=== PATIENT | male | born 1940 | race Caucasian/White ===

== ENCOUNTER 2019-01-24 13:02 | Inpatient (IN) | payer MEDICARE, OTHER ==
[2019-01-24] VITALS (37 sets, daily range): BP systolic 117–165; BP diastolic 41–110
[~2019-01-24] VITALS: Ht 152.4 cm; Wt 76.3 kg
[2019-01-24 13:56] LABS: BASOPHILS % 1.5 % (0.0-2.0); EOSINOPHILS % 1.5 % (0.0-5.0); HEMATOCRIT. 29.2 % (42.0-52.0); HEMOGLOBIN. 9.9 g/dL (14.0-18.0); LYMPHOCYTES % 19.1 % (20.0-50.0); MEAN CORPUSCULAR HEMOGLOBIN 32.4 pg (28.0-32.0); MEAN CORPUSCULAR VOLUME 95.3 fL (80.0-94.0); MEAN PLATELET VOLUME 8.4 fl (7.4-10.4); NEUTROPHILS % 70.9 % (40.0-76.0); PLATELET 198 x1000/uL (130-400); RED BLOOD CELL COUNT 3.06 mill/uL (4.7-6.1)
[2019-01-24] MEDS ORDERED: LEVETIRACETAM 1,000 MG in SODIUM CHLORIDE 0.9% 100 ML IV STA (13:57)
[2019-01-24] MEDS ORDERED: NICARDIPINE 40MG/200ML PREMIX 200 ML IV STA (13:57)
[2019-01-24 14:03] LABS: CHLORIDE 112 mEq/L (98-107)
[2019-01-24 14:04] LABS: INR 1.1; PROTHROMBIN TIME 11.4 sec (9.6-11.0)
[2019-01-24 14:07] LABS: ETHANOL BLOOD < 10 mg/dL
[2019-01-24 14:10] LABS: LDL CHOLESTEROL 104 mg/dL (5-100)
[2019-01-24] MEDS ORDERED: MORPHINE SULFATE 2 MG/ML CPJ (NOT FOR IM USE) IV PRN (14:45)
[2019-01-24] MEDS ORDERED: DEXT 5%/LACTATED RINGERS 1,000 ML IV SCH (16:00)
[2019-01-24] MEDS ORDERED: NICARDIPINE 100 MG in SODIUM CHLORIDE 0.9% 60 ML IV PRN (16:30)
[2019-01-24] MEDS ORDERED: ACETAMINOPHEN 650MG SUPP PR PRN (18:15)
[2019-01-24] MEDS ORDERED: DOCUSATE SODIUM 100MG CAPSULE PO PRN (18:15)
[2019-01-24] MEDS ORDERED: GUAIFENESIN 200MG/10ML SUGAR FREE UDC PO PRN (18:15)
[2019-01-24] MEDS ORDERED: MAGNESIUM/ALUMINUM HYDROXIDE/SIMETHICONE 30ML UDC PO PRN (18:15)
[2019-01-24] MEDS ORDERED: ONDANSETRON HCL 4MG/2ML INJ IV PRN (18:15)
[2019-01-24] MEDS ORDERED: IPRATROPIUM/ALBUTEROL 0.5-3(2.5)MG/3ML NEB HHN PRN (18:15)
[2019-01-24] MEDS ORDERED: DIPHENHYDRAMINE 50MG/ML VIAL IV PRN (18:15)
[2019-01-24] MEDS: DEXAMETHASONE 4MG/ML 1ML VIAL IV SCH ×2 (18:33→23:51)
[2019-01-24] MEDS: NICARDIPINE 100 MG in SODIUM CHLORIDE 0.9% 60 ML IV PRN (18:35)
[2019-01-24 19:17] LABS: PHOSPHORUS 3.3 mg/dL (2.5-4.9)
[2019-01-24 19:49] LABS: CLARITY URINE TURBID (CLEAR); COLOR URINE YELLOW (YELLOW); KETONES URINE NEGATIVE (NEGATIVE); LEUKOCYTE ESTERASE URINE 3+ (NEGATIVE); NITRITE URINE NEGATIVE (NEGATIVE); OCCULT BLOOD URINE 2+ (NEGATIVE); PROTEIN URINE 3+ (NEGATIVE); UROBILINOGEN URINE 0.2 E.U./dL (0.2-1.0)
[2019-01-24 20:00] LABS: *AMPHETAMINES SCREEN URINE NEGATIVE (NEGATIVE); *BARBITURATES SCREEN URINE NEGATIVE (NEGATIVE); *BENZODIAZEPINES SCREEN URINE NEGATIVE (NEGATIVE); *COCAINE SCREEN URINE NEGATIVE (NEGATIVE); METHADONE URINE SCREEN NEGATIVE (NEGATIVE)
[2019-01-24 20:01] LABS: CANNABINOID URINE SCREEN NEGATIVE (NEGATIVE); OPIATES URINE SCREEN NEGATIVE (NEGATIVE); PHENCYCLIDINE URINE SCREEN NEGATIVE (NEGATIVE)
[2019-01-24 23:57] LABS: CREATINE KINASE MB FRACTION 5.6 ng/mL (0.5-3.6)
[2019-01-25] VITALS (97 sets, daily range): BP systolic 109–148; BP diastolic 29–110
[2019-01-25 05:23] LABS: EOSINOPHILS % 0.1 % (0.0-5.0); HEMATOCRIT. 31.8 % (42.0-52.0); HEMOGLOBIN. 10.8 g/dL (14.0-18.0); LYMPHOCYTES % 15.3 % (20.0-50.0); MEAN CORPUSCULAR HEMOGLOBIN 32.4 pg (28.0-32.0); MEAN CORPUSCULAR VOLUME 95.5 fL (80.0-94.0); MEAN PLATELET VOLUME 8.5 fl (7.4-10.4); MONOCYTES % 1.4 % (2.0-8.0); NEUTROPHILS % 82.2 % (40.0-76.0); PLATELET 215 x1000/uL (130-400); RED BLOOD CELL COUNT 3.34 mill/uL (4.7-6.1)
[2019-01-25 05:27] LABS: CHLORIDE 114 mEq/L (98-107)
[2019-01-25 05:35] LABS: LDL CHOLESTEROL 117 mg/dL (5-100)
[2019-01-25 05:36] LABS: CREATINE KINASE 160 IU/L (39-308)
[2019-01-25 05:37] LABS: HDL CHOLESTEROL 44 mg/dL (40-59)
[2019-01-25 05:39] LABS: CREATINE KINASE MB FRACTION 5.1 ng/mL (0.5-3.6)
[2019-01-25] MEDS: DEXAMETHASONE 4MG/ML 1ML VIAL IV SCH ×3 (07:08→17:56)
[2019-01-25] MEDS: NIFEDIPINE XL 60MG TAB PO SCH (12:06)
[2019-01-25] MEDS: NICARDIPINE 100 MG in SODIUM CHLORIDE 0.9% 60 ML IV PRN (12:31)
[2019-01-25] MEDS ORDERED: LEVOFLOXACIN 750MG PREMIX 150 ML IV NR (18:00)
[2019-01-25] MEDS: METOPROLOL TARTRATE 25MG TABLET PO SCH (20:58)
[2019-01-26] VITALS (66 sets, daily range): BP systolic 88–142; BP diastolic 28–77
[2019-01-26 04:51] LABS: BASOPHILS % 0.3 % (0.0-2.0); HEMATOCRIT. 33.3 % (42.0-52.0); HEMOGLOBIN. 11.1 g/dL (14.0-18.0); LYMPHOCYTES % 8.7 % (20.0-50.0); MEAN CORPUSCULAR HEMOGLOBIN 32.2 pg (28.0-32.0); MEAN PLATELET VOLUME 8.9 fl (7.4-10.4); MONOCYTES % 2.3 % (2.0-8.0); NEUTROPHILS % 88.7 % (40.0-76.0); PLATELET 217 x1000/uL (130-400); RED BLOOD CELL COUNT 3.43 mill/uL (4.7-6.1); RED CELL DISTRIBUTION WIDTH 14.1 % (11.6-14.6)
[2019-01-26 05:14] LABS: PHOSPHORUS 3.7 mg/dL (2.5-4.9)
[2019-01-26] MEDS ORDERED: SODIUM POLYSTYRENE SULFONATE 15 G/60 ML BOT PO ONE (08:00)
[2019-01-26] MEDS: NIFEDIPINE XL 60MG TAB PO SCH (08:59)
[2019-01-26] MEDS: METOPROLOL TARTRATE 25MG TABLET PO SCH (09:01)
[2019-01-26] MEDS ORDERED: SODIUM POLYSTYRENE SULFONATE 15 G/60 ML BOT PO NR (10:00)
[2019-01-26] MEDS: TAMSULOSIN HCL 0.4MG SR CAPSULE PO SCH (11:03)
[2019-01-27] VITALS (15 sets, daily range): BP systolic 122–149; BP diastolic 55–77
[2019-01-27 08:33] LABS: BASOPHILS % 0.3 % (0.0-2.0); EOSINOPHILS % 0.2 % (0.0-5.0); HEMATOCRIT. 28.5 % (42.0-52.0); HEMOGLOBIN. 9.7 g/dL (14.0-18.0); LYMPHOCYTES % 15.3 % (20.0-50.0); MEAN CORPUSCULAR HEMOGLOBIN 32.2 pg (28.0-32.0); MEAN CORPUSCULAR VOLUME 94.6 fL (80.0-94.0); MONOCYTES % 8.3 % (2.0-8.0); NEUTROPHILS % 75.9 % (40.0-76.0); PLATELET 205 x1000/uL (130-400); RED BLOOD CELL COUNT 3.01 mill/uL (4.7-6.1)
[2019-01-27 08:53] LABS: PHOSPHORUS 4.2 mg/dL (2.5-4.9)
[2019-01-27] MEDS: NIFEDIPINE XL 60MG TAB PO SCH (09:18)
[2019-01-27] MEDS: TAMSULOSIN HCL 0.4MG SR CAPSULE PO SCH (09:18)
[2019-01-27] MEDS ORDERED: LEVOFLOXACIN 500MG PREMIX 100 ML IV SCH (14:00)
[2019-01-28] VITALS (12 sets, daily range): BP systolic 134–170; BP diastolic 57–92
[2019-01-28 07:31] LABS: BASOPHILS % 0.7 % (0.0-2.0); EOSINOPHILS % 0.5 % (0.0-5.0); HEMATOCRIT. 31.6 % (42.0-52.0); HEMOGLOBIN. 10.7 g/dL (14.0-18.0); LYMPHOCYTES % 15.8 % (20.0-50.0); MEAN CORPUSCULAR HEMOGLOBIN 32.3 pg (28.0-32.0); MEAN CORPUSCULAR VOLUME 95.2 fL (80.0-94.0); MEAN PLATELET VOLUME 8.7 fl (7.4-10.4); MONOCYTES % 10.7 % (2.0-8.0); NEUTROPHILS % 72.3 % (40.0-76.0); PLATELET 190 x1000/uL (130-400); RED BLOOD CELL COUNT 3.32 mill/uL (4.7-6.1); RED CELL DISTRIBUTION WIDTH 14.1 % (11.6-14.6)
[2019-01-28] MEDS: NIFEDIPINE XL 60MG TAB PO SCH (08:26)
[2019-01-28] MEDS: TAMSULOSIN HCL 0.4MG SR CAPSULE PO SCH (08:26)
[2019-01-28] MEDS: CLONIDINE 0.1MG TABLET PO PRN (09:29)
[2019-01-28] MEDS ORDERED: HYDRALAZINE 20MG/ML VIAL IV PRN (10:00)
[2019-01-29] VITALS (12 sets, daily range): BP systolic 130–168; BP diastolic 55–85
[2019-01-29 05:44] LABS: BASOPHILS % 0.2 % (0.0-2.0); EOSINOPHILS % 1.6 % (0.0-5.0); HEMATOCRIT. 30.9 % (42.0-52.0); HEMOGLOBIN. 10.5 g/dL (14.0-18.0); LYMPHOCYTES % 20.5 % (20.0-50.0); MEAN CORPUSCULAR HEMOGLOBIN 32.2 pg (28.0-32.0); MEAN CORPUSCULAR VOLUME 94.8 fL (80.0-94.0); MEAN PLATELET VOLUME 8.9 fl (7.4-10.4); MONOCYTES % 9.6 % (2.0-8.0); NEUTROPHILS % 68.1 % (40.0-76.0); PLATELET 180 x1000/uL (130-400); RED BLOOD CELL COUNT 3.26 mill/uL (4.7-6.1); RED CELL DISTRIBUTION WIDTH 13.8 % (11.6-14.6)
[2019-01-29 06:40] LABS: PHOSPHORUS 3.6 mg/dL (2.5-4.9)
[2019-01-29] MEDS: NIFEDIPINE XL 90MG TAB PO SCH (08:40)
[2019-01-29] MEDS: TAMSULOSIN HCL 0.4MG SR CAPSULE PO SCH (08:41)
[2019-01-29] MEDS: LEVOFLOXACIN 500MG TABLET PO SCH (13:36)
[2019-01-29] MEDS ORDERED: BISACODYL 10MG SUPP PR NR (16:16)
[2019-01-29] MEDS: DOCUSATE SODIUM 100MG CAPSULE PO SCH (17:00)
[2019-01-29] MEDS: LACTULOSE 20G/30ML UDC PO SCH ×2 (17:00→21:00)
[2019-01-29] MEDS: POLYETHYLENE GLYCOL 3350 (17GM) 1 DOSE PACK PO SCH (21:00)
[2019-01-30] VITALS (21 sets, daily range): BP systolic 131–183; BP diastolic 56–102
[2019-01-30 06:47] LABS: BASOPHILS % 0.5 % (0.0-2.0); EOSINOPHILS % 2.7 % (0.0-5.0); HEMOGLOBIN. 10.2 g/dL (14.0-18.0); LYMPHOCYTES % 20.1 % (20.0-50.0); MEAN CORPUSCULAR HEMOGLOBIN 32.3 pg (28.0-32.0); MEAN CORPUSCULAR VOLUME 94.9 fL (80.0-94.0); MEAN PLATELET VOLUME 9.6 fl (7.4-10.4); MONOCYTES % 11.2 % (2.0-8.0); NEUTROPHILS % 65.5 % (40.0-76.0); PLATELET 181 x1000/uL (130-400); RED BLOOD CELL COUNT 3.16 mill/uL (4.7-6.1); RED CELL DISTRIBUTION WIDTH 13.7 % (11.6-14.6)
[2019-01-30 07:52] LABS: PHOSPHORUS 3.4 mg/dL (2.5-4.9)
[2019-01-30] MEDS: TAMSULOSIN HCL 0.4MG SR CAPSULE PO SCH (08:57)
[2019-01-30] MEDS: LACTULOSE 20G/30ML UDC PO SCH ×4 (08:57→21:04)
[2019-01-30] MEDS: NIFEDIPINE XL 90MG TAB PO SCH (08:57)
[2019-01-30] MEDS: DOCUSATE SODIUM 100MG CAPSULE PO SCH ×2 (08:58→17:00)
[2019-01-30] MEDS: CLONIDINE 0.1MG TABLET PO PRN (15:26)
[2019-01-30] MEDS: POLYETHYLENE GLYCOL 3350 (17GM) 1 DOSE PACK PO SCH (21:04)
[2019-01-30] MEDS: HYDRALAZINE HCL 25MG TABLET PO SCH (23:22)
[2019-01-31] VITALS (19 sets, daily range): BP systolic 119–167; BP diastolic 53–75
[2019-01-31 05:57] LABS: BASOPHILS % 0.6 % (0.0-2.0); EOSINOPHILS % 3.5 % (0.0-5.0); HEMATOCRIT. 27.7 % (42.0-52.0); HEMOGLOBIN. 9.6 g/dL (14.0-18.0); LYMPHOCYTES % 25.4 % (20.0-50.0); MEAN CORPUSCULAR HEMOGLOBIN 32.9 pg (28.0-32.0); MEAN CORPUSCULAR VOLUME 95.2 fL (80.0-94.0); MEAN PLATELET VOLUME 9.1 fl (7.4-10.4); MONOCYTES % 12.2 % (2.0-8.0); NEUTROPHILS % 58.3 % (40.0-76.0); PLATELET 170 x1000/uL (130-400); RED BLOOD CELL COUNT 2.91 mill/uL (4.7-6.1); RED CELL DISTRIBUTION WIDTH 13.8 % (11.6-14.6)
[2019-01-31 06:20] LABS: PHOSPHORUS 4.1 mg/dL (2.5-4.9)
[2019-01-31] MEDS: HYDRALAZINE HCL 25MG TABLET PO SCH ×3 (06:32→22:46)
[2019-01-31] MEDS: DOCUSATE SODIUM 100MG CAPSULE PO SCH ×2 (09:00→17:35)
[2019-01-31] MEDS: LACTULOSE 20G/30ML UDC PO SCH ×3 (09:00→17:35)
[2019-01-31] MEDS ORDERED: SODIUM BICARBONATE 4% (2.4MEQ) 5ML VIAL IV ONE (10:01)
[2019-01-31] MEDS ORDERED: IODIXANOL 320MG/ML 100 ML BOTTLE IV ONE (10:01)
[2019-01-31] MEDS ORDERED: LIDOCAINE HCL 1% 20ML VIAL (Pyxis) INJ ONE (10:02)
[2019-01-31] MEDS: NIFEDIPINE XL 90MG TAB PO SCH (13:19)
[2019-01-31] MEDS: TAMSULOSIN HCL 0.4MG SR CAPSULE PO SCH (13:20)
[2019-01-31] MEDS: LEVOFLOXACIN 500MG TABLET PO SCH (14:44)
[2019-01-31] MEDS: POLYETHYLENE GLYCOL 3350 (17GM) 1 DOSE PACK PO SCH (22:46)
[2019-02-01] VITALS: BP 136/55
[2019-02-01 04:00] VITALS: BP 145/61
[2019-02-01] MEDS: HYDRALAZINE HCL 25MG TABLET PO SCH (07:02)
[2019-02-01] MEDS: NIFEDIPINE XL 90MG TAB PO SCH (09:00)
[2019-02-01] MEDS: TAMSULOSIN HCL 0.4MG SR CAPSULE PO SCH (09:00)
[2019-02-01] MEDS: DOCUSATE SODIUM 100MG CAPSULE PO SCH (09:00)
[2019-02-01 09:15] VITALS: BP 145/91
== END 2019-02-01 10:45 | disposition home health service (06) | DRG 40 ==
LOC: ER 13:02 → EDBEDREQSVC 14:52 → ENRESERV 14:54 → EDBEDREQ 14:58 → MICUNO 15:21 → 5EST 01-26 23:10
PROVIDERS: ADMIT Internal Medicine; ATTEND Internal Medicine
PROC: 06H03DZ Insertion of Intraluminal Device into Inferior Vena Cava, Percutaneous Approach (ICD-10-PCS; principal; 2019-01-31)
DX: I61.8 Other nontraumatic intracerebral hemorrhage (principal); N17.0 Acute kidney failure with tubular necrosis; N39.0 Urinary tract infection, site not specified; I16.1 Hypertensive emergency; E44.1 Mild protein-calorie malnutrition; I82.431 Acute embolism and thrombosis of right popliteal vein; N13.6 Pyonephrosis; H53.47 Heteronymous bilateral field defects; G83.14 Monoplegia of lower limb affecting left nondominant side; E87.5 Hyperkalemia; N18.2 Chronic kidney disease, stage 2 (mild); D64.9 Anemia, unspecified; R13.10 Dysphagia, unspecified; E78.5 Hyperlipidemia, unspecified; L57.0 Actinic keratosis; I12.9 Hypertensive chronic kidney disease with stage 1 through stage 4 chronic kidney disease, or unspecified chronic kidney disease; E11.319 Type 2 diabetes mellitus with unspecified diabetic retinopathy without macular edema; E11.22 Type 2 diabetes mellitus with diabetic chronic kidney disease; E11.40 Type 2 diabetes mellitus with diabetic neuropathy, unspecified; H54.62 Unqualified visual loss, left eye, normal vision right eye; Z79.4 Long term (current) use of insulin; Z82.49 Family history of ischemic heart disease and other diseases of the circulatory system; Z83.3 Family history of diabetes mellitus; Z86.718 Personal history of other venous thrombosis and embolism; Z88.0 Allergy status to penicillin; Z95.828 Presence of other vascular implants and grafts; Z86.73 Personal history of transient ischemic attack (TIA), and cerebral infarction without residual deficits; Z88.1 Allergy status to other antibiotic agents; Z68.32 Body mass index [BMI] 32.0-32.9, adult
CPT/HCPCS: 36415; 37191; 71045; 76770; 80048; 80061; 80305; 80320; 81003; 82550; 82553; 82962; 83036; 83721; 83735; 83880; 84100; 84443; 84484; 92523; 92610; 93005; 93306; 93970; 96365; 97162; 97166; 97530; 97535; 99291; A6261; C1769; C1880; J0360; J1100; J1644; J1953; J1956; J3490; J7050; J7620; Q9967; A4315; G0480